=== PATIENT | female | born 2000 | race Caucasian/White ===

== ENCOUNTER → 2021-02-23 17:38 | Outpatient (BNVA) | payer OTHER, SELFPAY | PROVIDERS: Visit Provider Nurse Practitioner Family | DX: R56.9 Unspecified convulsions (principal) | CPT/HCPCS: 80053; 80183; 84443; 85025 ==

== ENCOUNTER → 2021-06-22 11:37 | Outpatient (BNVA) | payer OTHER, SELFPAY | PROVIDERS: PCP Nurse Practitioner Family; Visit Provider Specialist | DX: G40.109 Localization-related (focal) (partial) symptomatic epilepsy and epileptic syndromes with simple partial seizures, not intractable, without status epilepticus (principal); G40.309 Generalized idiopathic epilepsy and epileptic syndromes, not intractable, without status epilepticus; Q04.3 Other reduction deformities of brain; Q21.3 Tetralogy of Fallot | CPT/HCPCS: 99205 ==

== ENCOUNTER → 2024-02-29 14:40 | Outpatient (BNVA) | payer MEDICAID, SELFPAY | PROVIDERS: PCP Family Medicine; Referring Provider Family Medicine; Visit Provider Internal Medicine | DX: R07.9 Chest pain, unspecified (principal); Q21.3 Tetralogy of Fallot; I45.10 Unspecified right bundle-branch block | CPT/HCPCS: 93005 ==

== ENCOUNTER 2024-03-20 09:58 | Outpatient (CLI) | payer MEDICAID, SELFPAY ==
--- NOTE | 2024-03-20 10:00 | USCV_ITS ---
Teagan Kelley Age: 23 Gender: F : 2000 Exam Date: 03/20/2024 10:47 Ordering Phys: Andres Contreras M.D ([email or web address]) Technologist: Angie Thomson Exam Location: [facility] [place] Indication: TETRALOGY OF FALLOT BP: 104 / 64 HR: 77 Rhythm: Sinus Technical Quality: Adequate MEASUREMENTS (Male / Female) Normal Values 2D ECHO LV Diastolic Diameter PLAX 3.8 cm 4.2 - 5.9 / 3.9 - 5.3 cm IVS Diastolic Thickness 0.9 cm 0.6 - 1.0 / 0.6 - 0.9 cm IVS Systolic Thickness 1.2 cm LVPW Diastolic Thickness 1.3 cm 0.6 - 1.0 / 0.6 - 0.9 cm LVPW Systolic Thickness 2.0 cm LVOT Diameter 2.0 cm LV Ejection Fraction 2D Teich 53.9 % LV Ejection Fraction MOD 4C 69.9 % LV Ejection Fraction MOD 2C 61.9 % LV Ejection Fraction 2C AL 63.2 % LA Diameter 2.3 cm RA Systolic Volume 4C AL 22.8 ml RA Systolic Volume 4C MOD 22.0 ml LA Sys Volume AL 19.2 cm cubed LA Sys Volume Index AL 13.6 cm cubed/m squared Aorta at Sinotubular Diameter 2.3 cm IVC Diameter 1.3 cm M-MODE LA Ao Ratio MM 0.7 AV Cusp Separation MM 1.6 cm DOPPLER AV Peak Velocity 348.3 cm/s LVOT Peak Velocity 90.0 cm/s AV Area Cont Eq vti 2.8 cm squared AV Area Cont Eq pk 0.8 cm squared MV Peak Velocity 96.0 cm/s MV Area PHT 3.9 cm squared Mitral E to A Ratio 1.6 TR Peak Velocity 265.0 cm/s TR Peak Gradient 28.1 mmHg TR Mean Velocity 221.0 cm/s TR Mean Gradient 20.3 mmHg TR Velocity Time Integral 82.5 cm TV Peak E Velocity 59.0 cm/s Right Atrial Pressure 3.0 mmHg Pulmonary Artery Systolic Pressu 31.1 mmHg PV Peak Velocity 204.3 cm/s RV Ejection Time 0.3 s FINDINGS Left Ventricle Left ventricle is normal size. LV systolic function is normal with EF of 50 to 55%. Septal motion is consistent with prior surgery. Right Ventricle Normal in size and function Right Atrium Normal in size Left Atrium Normal in size Mitral Valve Structurally normal mitral valve. Trace mitral regurgitation. Aortic Valve Structurally normal aortic valve. No significant stenosis. Moderate aortic regurgitation. Tricuspid Valve Mild tricuspid regurgitation. Pulmonary artery systolic pressure is normal Pulmonic Valve Grossly normal. Grossly has atleast moderate pulmonic regurgitation Pericardium Normal Aorta Normal in size IVC Appears to be normal CONCLUSIONS LV systolic function is normal with EF of 50-55%. Trace mitral regurgitation Moderate aortic regurgitation Mild tricuspid regurgitation Atleast moderate pulmonic regurgitation No comparison studies are available. Andres Contreras MD (Electronically Signed) Final Date: 03 April 2024 12:40 S
== END 2024-03-20 09:59 | disposition home or self-care (01) ==
LOC: RAD 09:58
PROVIDERS: PCP Family Medicine; Visit Provider Internal Medicine
DX: I08.2 Rheumatic disorders of both aortic and tricuspid valves (principal); Q21.3 Tetralogy of Fallot; R07.9 Chest pain, unspecified; R06.02 Shortness of breath
CPT/HCPCS: 93306